=== PATIENT | female | born 1965 | race Caucasian/White ===

== ENCOUNTER 2016-07-28 21:21 | Emergency (ER) | payer OTHER ==
[~2016-07-28] VITALS: Ht 157.5 cm; Wt 95.3 kg
[~2016-07-28 21:21] MED LIST: CEPH-507 PO; CPR500T PO; HYDR-3583 PO; HYDR-757 PO; HYDR-91 PO; NITR-33 PO; NITR100C3 PO
--- OUTSIDE RECORDS SUMMARY | 2016-07-28 21:26 | XMS REPORT | Continuity of Care Document ---
Author Author [facility] Organization [facility] Address Unknown Phone Unavailable Allergies Active Description Code Type Severity Reaction Onset Reported/Identified Relationship to Patient Clinical Status Yes iodine [id number] Drug Allergy Moderate SWELLING, RASH 08/22/2015 Yes morphine [id number] Drug Allergy Mild N/V 08/22/2015 Medications Problems Date Dx Coded Attending Type Code Diagnosis Diagnosed By 08/22/2015 SHIREEN ESTES APRN Ot S61.512A LACERATION WITHOUT FOREIGN BODY OF LEFT 08/22/2015 SHIREEN ESTES APRN Ot S66.822A LACERATION OF MUSC/FASC/TEND AT WRS/ HND 08/22/2015 SHIREEN ESTES APRN Ot W25.XXXA CONTACT WITH [place], INITIAL ENCOUN 08/22/2015 SHIREEN ESTES APRN Ot Y92.[address] [facility] [place] [facility] ( PRIVATE 08/22/2015 SHIREEN ESTES APRN Ot Y99.8 OTHER EXTERNAL CAUSE STATUS 08/22/2015 SHIREEN ESTES APRN Ot Z23 ENCOUNTER FOR IMMUNIZATION 08/24/2015 SHIREEN ESTES APRN Ot S61.512A 08/24/2015 SHIREEN ESTES APRN Ot S66.822A 08/24/2015 SHIREEN ESTES APRN Ot W25.XXXA 08/24/2015 SHIREEN ESTES APRN Ot Y92.009 08/24/2015 SHIREEN ESTES APRN Ot Y99.8 08/24/2015 SHIREEN ESTES APRN Ot Z23 09/17/2015 SHIREEN ESTES APRN Ot S61.512A LACERATION WITHOUT FOREIGN BODY OF LEFT 09/17/2015 SHIREEN ESTES APRN Ot S66.822A LACERATION OF MUSC/FASC/TEND AT WRS/ HND 09/17/2015 SHRIEEN ESTES APRN Ot W25.XXXA CONTACT WITH [place], INITIAL ENCOUN 09/17/2015 SHIREEN ESTES APRN Ot Y92.[address] IN [facility] NON-INSTITUT ( PRIVATE 09/17/2015 SHIREEN ESTES APRN Ot Y99.8 OTHER EXTERNAL CAUSE STATUS 09/17/2015 SHIREEN ESTES APRN Ot Z23 ENCOUNTER FOR IMMUNIZATION 09/22/2015 GEORGINA PINEDA Ot K57.90 DVRTCLOS OF INTEST, 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[place], W/O PERF 09/22/2015 GEORGINA PINEDA Ot Z90.710 ACQUIRED ABSENCE OF BOTH CERVIX AND UTER 09/23/2015 Ot 592.0 CALCULUS OF KIDNEY 09/23/2015 Ot 729.5 PAIN IN LIMB 09/23/2015 Ot 729.81 SWELLING OF LIMB 09/23/2015 VANBECELAERE, PHILL M RESEARCH SOFTWARE ENGINEER Ot 729.5 PAIN IN LIMB 09/23/2015 VANBECELAERE, PHILL M RESEARCH SOFTWARE ENGINEER Ot 729.5 PAIN IN LIMB 09/23/2015 VANBECELAERE, PHILL M RESEARCH SOFTWARE ENGINEER Ot 729.81 SWELLING OF LIMB 09/23/2015 SHIREEN ESTES APRN Ot S61.512A LACERATION WITHOUT FOREIGN BODY OF LEFT 09/23/2015 SHIREEN ESTES APRN Ot S66.822A LACERATION OF MUSC/FASC/TEND AT WRS/ HND 09/23/2015 SHIREEN ESTES APRN Ot W25.XXXA CONTACT WITH SH[place], INITIAL ENCOUN 09/23/2015 SHIREEN ESTES APRN Ot Y92.[address] [facility] NON-INSTITUT ( PRIVATE 09/23/2015 SHIREEN ESTES APRN Ot Y99.8 OTHER EXTERNAL CAUSE STATUS 09/23/2015 SHIREEN ESTES APRN Ot Z23 ENCOUNTER FOR IMMUNIZATION 09/23/2015 GEORGINA PINEDA Ot K57.90 DVRTCLOS OF INTEST, PART UNSP, W/O PERF 09/23/2015 GEORGINA PINEDA Ot Z90.710 ACQUIRED ABSENCE OF BOTH CERVIX AND UTER 09/24/2015 ADELINA GALEAS MD Ot Z01.818 ENCOUNTER FOR OTHER PREPROCEDURAL EXAMIN 09/25/2015 ADELINA GALEAS MD Ot Z01.818 ENCOUNTER FOR OTHER PREPROCEDURAL EXAMIN 09/28/2015 ADELINA GALEAS MD Ot 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 PERFORATION OR AB 09/28/2015 ADELINA GALEAS MD Ot K63.5 POLYP OF COLON 09/28/2015 ADELINA GALEAS MD, Ot K64.1 SECOND DEGREE HEMORRHOIDS 09/28/2015 ADELINA GALEAS MD Ot Z12.11 ENCOUNTER FOR SCREENING FOR MALIGNANT NE 09/29/2015 ADELINA GALEAS MD Ot 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 PERFORATION OR AB 09/29/2015 ADELINA GALEAS MD Ot K63.5 POLYP OF COLON 09/29/2015 ADELINA GALEAS MD Ot K64.1 SECOND DEGREE HEMORRHOIDS 09/29/2015 ADELINA GALEAS MD Ot Z12.11 ENCOUNTER FOR SCREENING FOR MALIGNANT NE 09/30/2015 SHIREEN ESTES VACUUM CONDITIONER OPERATOR Ot S61.512A LACERATION WITHOUT FOREIGN BODY OF LEFT 09/30/2015 SHIREEN ESTSE VACUUM CONDITIONER OPERATOR Ot S66.822A LACERATION OF MUSC/FASC/TEND AT WRS/ HND 09/30/2015 SHIREEN ESTES VACUUM CONDITIONER OPERATOR Ot W25.XXXA CONTACT WITH [place], INITIAL ENCOUN 09/30/2015 SHIREEN ESTES VACUUM CONDITIONER OPERATOR Ot Y92.[address] IN [facility] NON-INSTITUT ( PRIVATE 09/30/2015 SHIREEN ESTES APRN Ot Y99.8 OTHER EXTERNAL CAUSE STATUS 09/30/2015 SHIREEN ESTES VACUUM CONDITIONER OPERATOR Ot Z23 ENCOUNTER FOR IMMUNIZATION 10/07/2015 ADELINA GALEAS MD Ot 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 PERFORATION OR AB 10/07/2015 ADELINA GALEAS MD Ot K63.5 POLYP OF COLON 10/07/2015 ADELINA GALEAS MD Ot K64.1 SECOND DEGREE HEMORRHOIDS 10/07/2015 ADELINA GALEAS MD Ot Z12.11 ENCOUNTER FOR SCREENING FOR MALIGNANT NE 10/15/2015 GEORGINA PINEDA Ot K57.90 DVRTCLOS OF INTEST, PART UNSP, W/O PERF 10/15/2015 GEORGINA PINEDA Ot Z90.710 ACQUIRED ABSENCE OF BOTH CERVIX AND UTER 10/15/2015 PHILL ANNE [facility] Ot R19.09 OTHER INTRA-ABDOMINAL AND PELVIC SWELLIN 11/12/2015 ADELINA GALEAS MD Ot 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 PERFORATION OR AB 11/12/2015 ADELINA GALEAS MD Ot K63.5 POLYP OF COLON 11/12/2015 ADELINA GALEAS MD Ot K64.1 SECOND DEGREE HEMORRHOIDS 11/12/2015 ADELINA GALEAS MD Ot Z12.11 ENCOUNTER FOR SCREENING FOR MALIGNANT NE 04/28/2016 Ot 592.0 CALCULUS OF KIDNEY 04/28/2016 Ot 729.5 PAIN IN LIMB 04/28/2016 Ot 729.81 SWELLING OF LIMB 04/28/2016 VANBECELAERE, PHILL M RESEARCH SOFTWARE ENGINEER Ot 729.5 PAIN IN LIMB 04/28/2016 VANBECELAERE, PHILL M RESEARCH SOFTWARE ENGINEER Ot 729.5 PAIN IN LIMB 04/28/2016 VANBECELAERE, PHILL M RESEARCH SOFTWARE ENGINEER Ot 729.81 SWELLING OF LIMB 04/28/2016 GEORGINA PINEDA Ot K57.90 DVRTCLOS OF INTEST, PART UNSP, W/O PERF 04/28/2016 GEORGINA PINEDA Ot Z90.710 ACQUIRED ABSENCE OF BOTH CERVIX AND UTER 04/28/2016 ADELINA GALEAS MD Ot 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 PERFORATION OR AB 04/28/2016 ADELINA GALEAS MD Ot K63.5 POLYP OF COLON 04/28/2016 ADELINA GALEAS MD Ot K64.1 SECOND DEGREE HEMORRHOIDS 04/28/2016 ADELINA GALEAS MD Ot Z12.11 ENCOUNTER FOR SCREENING FOR MALIGNANT NE 04/28/2016 VANBECELAERE, PHILL M RESEARCH SOFTWARE ENGINEER Ot R19.09 OTHER INTRA-ABDOMINAL AND PELVIC SWELLIN 05/13/2016 Ot 592.0 CALCULUS OF KIDNEY 05/13/2016 Ot 729.5 PAIN IN LIMB 05/13/2016 Ot 729.81 SWELLING OF LIMB 05/13/2016 VANBECELAERE, PHILL M RESEARCH SOFTWARE ENGINEER Ot 729.5 PAIN IN LIMB 05/13/2016 VANBECELAERE, PHILL M RESEARCH SOFTWARE ENGINEER Ot 729.5 PAIN IN LIMB 05/13/2016 VANBECELAERE, PHILL M RESEARCH SOFTWARE ENGINEER Ot 729.81 SWELLING OF LIMB 05/13/2016 GEORGINA PINEDA Ot K57.90 DVRTCLOS OF INTEST, PART UNSP, W/O PERF 05/13/2016 GEORGINA PINEDA Ot Z90.710 ACQUIRED ABSENCE OF BOTH CERVIX AND UTER 05/13/2016 ADELINA GALEAS MD Ot 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 PERFORATION OR AB 05/13/2016 ADELINA GALEAS MD Ot K63.5 POLYP OF COLON 05/13/2016 ADELINA GALEAS MD Ot K64.1 SECOND DEGREE HEMORRHOIDS 05/13/2016 ADELINA GALEAS MD Ot Z12.11 ENCOUNTER FOR SCREENING FOR MALIGNANT NE 05/13/2016 PHILL ANNE Ot R19.09 OTHER INTRA-ABDOMINAL AND PELVIC SWELLIN Procedures Results Encounters ACCT No. Visit Date/Time Discharge Status Pt. Type Provider Facility Loc./Unit Complaint [id number] 09/24/2015 07:28:00 2015 09:41:00 DIS Outpatient ADELINA GALEAS MD [facility] PREOP SCREENING; ABDOMINAL PAIN [id number] 08/22/2015 16:45:00 2015 17:52:00 DIS Emergency SHIREEN ESTES APRN [facility] ER L ARM LAC [id number] 10/16/2013 12:51:00 2013 23:59:59 CLS Outpatient PHILL ANNE [facility] RAD RT FOOT PAIN AND SWELLING [id number] 10/07/2013 11:27:00 2013 23:59:59 CLS Outpatient PHILL ANNE [facility] RAD RT FOOT PAIN [id number] 07/28/2016 21:22:00 ACT Emergency RAMON DUNNE DO [facility] ER ABD PAIN [id number] 09/25/2015 10:39:00 ACT Outpatient ADELINA GALEAS MD [facility] SDC SCREENING; ABDOMINAL PAIN [id number] 09/24/2015 15:34:00 ACT Outpatient PHILL ANNE [facility] RAD LT ADNEXAL MASS [id number] 09/19/2015 11:41:00 ACT Outpatient CASH IBRAHIM, GEORGINA Hinson [facility] RAD L FLANK PAIN [id number] 03/08/2012 14:54:00 Document Registration [id number] 11/11/2011 16:27:00 Document Registration
[2016-07-28] MEDS ORDERED: LACTATED RINGERS 1,000 ML IV ONE (22:51)
[2016-07-28 22:58] LABS: BASOPHILS % (AUTO) 0 % (0-10); EOSINOPHILS # (AUTO) 0.1 10^3/uL (0.0-0.3); EOSINOPHILS % (AUTO) 1 % (0-10); LYMPHOCYTES # (AUTO) 0.8 X 10^3 (1.0-4.0); LYMPHOCYTES % (AUTO) 8 % (12-44); MEAN CORPUSCULAR HEMOGLOBIN 29 PG (25-34); MEAN CORPUSCULAR HGB CONC 35 G/DL (32-36); MEAN CORPUSCULAR VOLUME 84 FL (80-99); MEAN PLATELET VOLUME 10.5 FL (7.4-10.4); MONOCYTES # (AUTO) 0.7 X 10^3 (0.0-1.0); MONOCYTES % (AUTO) 7 % (0-12); NEUTROPHILS % (AUTO) 85 % (42-75); PLATELET COUNT 248 10^3/uL (130-400); RED BLOOD COUNT 5.23 10^6/uL (4.35-5.85); RED CELL DISTRIBUTION WIDTH 12.9 % (10.0-14.5); WHITE BLOOD COUNT 10.6 10^3/uL (4.3-11.0)
[2016-07-28] MEDS ORDERED: ONDANSETRON 4 MG/2 ML (SDV) Z0FRAN IVP ONE (23:00)
[2016-07-28 23:12] LABS: ALANINE AMINOTRANSFERASE 23 U/L (0-55); ALBUMIN 3.6 G/DL (3.2-4.5); AMYLASE 48 U/L (25-125); ANION GAP 10 MMOL/L (5-14); ASPARTATE AMINO TRANSFERASE 16 U/L (5-34); BILIRUBIN,TOTAL 0.6 MG/DL (0.1-1.0); BLOOD UREA NITROGEN 7 MG/DL (7-18); BUN/CREATININE RATIO 9; CALCIUM 8.5 MG/DL (8.5-10.1); CARBON DIOXIDE 21 MMOL/L (21-32); CHLORIDE 106 MMOL/L (98-107); CREATININE SERUM 0.75 MG/DL (0.60-1.30); GFR ESTIMATED > 60; GLUCOSE 112 MG/DL (70-105); LIPASE 48 U/L (8-78); POTASSIUM 3.7 MMOL/L (3.6-5.0); SODIUM 137 MMOL/L (135-145); TOTAL PROTEIN 6.9 G/DL (6.4-8.2)
[2016-07-28] MEDS ORDERED: fentaNYL INJECTION 100 MCG/2 ML AMP IVP STA (23:15)
[2016-07-28 23:59] LABS: BILIRUBIN,URINE NEGATIVE (NEGATIVE); KETONES,URINE NEGATIVE (NEGATIVE); LEUKOCYTE ESTERASE ,URINE 1+ (NEGATIVE); NITRITE,URINE NEGATIVE (NEGATIVE); PH,URINE 7 (5-9); PROTEIN,URINE NEGATIVE (NEGATIVE); UROBILINOGEN,URINE NORMAL (NORMAL)
[2016-07-29 00:13] LABS: WBC,URINE 0-2 /HPF
[2016-07-29] MEDS ORDERED: RX-HYOSCYAMINE 0.125 MG SL (LEVSIN) PPK#6 SL STA (00:28)
[2016-07-29] MEDS ORDERED: fentaNYL INJECTION 100 MCG/2 ML AMP IVP STA (00:28)
[2016-07-29] MEDS ORDERED: RX-TRAMADOL 50 MG (ULTRAM) TAB PPK#4 PO STA (00:28)
[2016-07-29] MEDS ORDERED: RX-ONDANSETRON 4 MG ODT (ZOFRAN) PPK #4 PO STA (00:28)
[2016-07-29] MEDS ORDERED: TRAM-42 PO (00:31)
[2016-07-29] MEDS ORDERED: HYOS0.1283 SL (00:31)
[2016-07-29] MEDS ORDERED: ONDA4TAB8 PO (00:31)
--- NOTE | 2016-07-29 00:31 | ED Abdominal Pain ---
General Chief Complaint: Abdominal/GI Problems Stated Complaint: ABD PAIN Nursing Triage Note: PT C/O ABDOMINAL PAIN AND VOMITING STARTING THIS MORNING. Sepsis Screen: No Definite Risk Source of Information: Patient History of Present Illness Time Seen By Provider: 22:48 Initial Comments PT ARRIVES VIA POV FORM HOME C/O EPIGASTRIC PAIN SINCE THIS AM--PAIN IS CONSTANT, BUT WAXES AND WANES AND IS SHARP AT TIMES PAIN RADIATES THROUGH TO BACK HAS HAD NAUSEA AND VOMITED X 1-NO HEMATEMESIS OR COFFEE-GROUND EMESIS HAD DIARRHEA X 1--SMALL AMOUNT. NO BLACK/BLOODY/TARRY STOOLS HAD TEMP OF 99 NO URINARY SYMPTOMS PAIN IS WORSE WITH MOVEMENTS OR EATING / DRINKING--STATES IT FEELS THE SAME WHEN SHE STILL HAD HER GALLBLADDER ( HAS BEEN REMOVED) NO KNOWN SICK CONTACTS. PCP: DR. ZHENG Allergies and Home Medications Allergies Coded Allergies: iodine (Unverified Allergy, Intermediate, SWELLING, RASH, 08/22/15) morphine (Unverified Adverse Reaction, Mild, N/V, 08/22/15) Home Medications Hyoscyamine Sulfate 0.125 Mg Tab.subl #15 1-2 TAB SL Q4H Prescribed by: RAMON DUNNE on 07/29/1630 Nitrofurantoin Macrocrystals 100 Mg Capsule 7Days 1 EACH PO BID (Reported) Ondansetron 4 Mg Tab.rapdis #10 4 MG PO Q4H Prescribed by: RAMON DUNNE on 07/29/1630 Pantoprazole Sodium 40 Mg Tablet.dr #15 40 MG PO DAILY Prescribed by: RAMON DUNNE on 07/29/1631 Tramadol HCl 50 Mg Tablet #20 50 MG PO Q4H Prescribed by: RAMON DUNNE on 07/29/1630 Review of Systems Constitutional: see HPI fever EENTM: No Symptoms Reported Respiratory: No Symptoms Reported Cardiovascular: No Symptoms Reported Gastrointestinal: See HPI Abdominal Pain Diarrhea Nausea Poor Appetite Vomiting Genitourinary: No Symptoms Reported Musculoskeletal: see HPI back pain Skin: no symptoms reported Psychiatric/Neurological: No Symptoms Reported Endocrine: No Symptoms Reported Hematologic/Lymphatic: No Symptoms Reported Past Fhjkdby-Ehmljn-Kixdov Hx Patient Social History Alcohol Use: Rarely Uses Recreational Drug Use: No Smoking Status: Former Smoker (QUIT 1998) Type Used: Cigarettes Recent Foreign Travel: No Contact w/Someone Who Travel: No Recent Infectious Disease Expo: No Recent Hopitalizations: No Immunizations Up To Date Tetanus Booster (TDap): More than 5yrs Date of Influenza Vaccine: Feb 19, 2015 Seasonal Allergies Seasonal Allergies: No Surgeries HX Surgeries: Yes (ESWL; HYST--OVARIES INTACT. ) Surgeries: Appendectomy, Gallbladder, Hysterectomy, Renal Respiratory Hx Respiratory Disorders: Yes (HX ASTHMA-NO PROBLEMS IN 20 YRS) Respiratory Disorders: Asthma Cardiovascular Hx Cardiac Disorders: No Neurological Hx Neurological Disorders: Yes Neurological Disorders: Headaches /Migraines Reproductive System Hx Reproductive Disorders: No Sexually Transmitted Disease: No LAB HEAD History: Hysterectomy Genitourinary Hx Genitourinary Disorders: Yes (KIDNEY STONES-S/P LITHOTRIPSY; ATROPHIC LEFT KIDNEY. ) Genitourinary Disorders: Kidney Stones Gastrointestinal Hx Gastrointestinal Disorders: Yes (S/P SAMARA) Gastrointestinal Disorders: Gall Bladder Disease Musculoskeletal Hx Musculoskeletal Disorders: No Endocrine Hx Endocrine Disorders: No HEENT HX ENT Disorders: No Cancer Hx Cancer: No Psychosocial Hx Psychiatric Problems: No Integumentary HX Skin/Integumentary Disorder: No Blood Transfusions Hx Blood Disorders: No Physical Exam Vital Signs VS - Last 72 Hours, by Label 07/28/16 07/29/16 22:29 00:59 Temp 99.0 Pulse 89 89 Resp 18 18 B/P 122/83 Pulse Ox 95 99 O2 Delivery Room Air Capillary Refill : Less Than 3 Seconds General Appearance: WD/WN no apparent distress HEENT: PERRL/EOMI Neck: normal inspection Respiratory: normal breath sounds no respiratory distress no accessory muscle use Cardiovascular: regular rate, rhythm no murmur Gastrointestinal: normal bowel sounds soft no organomegaly no pulsatile mass tenderness (MODERATE EPIGASTRIC TENDERNESS) Extremities: normal inspection Back: CVA tenderness (R) (MILD) CVA tenderness (L) (MODERATE) Neurologic/Psychiatric: tetryl screen operator II-XII nml as tested no motor/sensory deficits alert normal mood/affect oriented x 3 Skin: normal color warm/dryNo rash Laceration Repair : Suture Size: 4-0 Progress/Results/Core Measures Results/Orders Lab Results Laboratory Tests Test 07/28/16 22:44 07/28/16 23:50 Range/Units Alanine Aminotransferase (ALT/SGPT) 23 0-55 U/L Albumin 3.6 3.2-4.5 G/DL Alkaline Phosphatase 85 40-136 U/L Amylase Level 48 25-125 U/L Anion Gap 10 5-14 MMOL/L Aspartate Amino Transf (AST/SGOT) 16 5-34 U/L BUN/Creatinine Ratio 9 Basophils # (Auto) 0.0 0.0-0.1 10^3/uL Basophils (%) (Auto) 0 0-10 % Blood Urea Nitrogen 7 7-18 MG/DL Calcium Level 8.5 8.5-10.1 MG/DL Carbon Dioxide Level 21 21-32 MMOL/L Chloride Level 106 98-107 MMOL/L Creatinine 0.75 0.60-1.30 MG/DL Eosinophils # (Auto) 0.1 0.0-0.3 10^3/uL Eosinophils (%) (Auto) 1 0-10 % Estimat Glomerular Filtration Rate > 60 Glucose Level 112 H 70-105 MG/DL Hematocrit 44 35-52 % Hemoglobin 15.3 11.5-16.0 G/DL Lipase 48 8-78 U/L Lymphocytes # (Auto) 0.8 L 1.0-4.0 X 10^3 Lymphocytes (%) (Auto) 8 L 12-44 % Mean Corpuscular Hemoglobin 29 25-34 PG Mean Corpuscular Hemoglobin Concent 35 32-36 G/DL Mean Corpuscular Volume 84 80-99 FL Mean Platelet Volume 10.5 H 7.4-10.4 FL Monocytes # (Auto) 0.7 0.0-1.0 X 10^3 Monocytes (%) (Auto) 7 0-12 % Neutrophils # (Auto) 9.0 H 1.8-7.8 X 10^3 Neutrophils (%) (Auto) 85 H 42-75 % Platelet Count 248 130-400 10^3/uL Potassium Level 3.7 3.6-5.0 MMOL/L Red Blood Count 5.23 4.35-5.85 10^6/uL Red Cell Distribution Width 12.9 10.0-14.5 % Sodium Level 137 135-145 MMOL/L Total Bilirubin 0.6 0.1-1.0 MG/DL Total Protein 6.9 6.4-8.2 G/DL White Blood Count 10.6 4.3-11.0 10^3/uL Urine Bacteria TRACE /HPF Urine Bilirubin NEGATIVE NEGATIVE Urine Casts NONE /LPF Urine Clarity CLEAR Urine Color YELLOW Urine Crystals NONE /LPF Urine Culture Indicated NO Urine Glucose (UA) NEGATIVE NEGATIVE Urine Ketones NEGATIVE NEGATIVE Urine Leukocyte Esterase 1+ H NEGATIVE Urine Mucus NEGATIVE /LPF Urine Nitrite NEGATIVE NEGATIVE Urine Protein NEGATIVE NEGATIVE Urine RBC NONE /HPF Urine RBC (Auto) NEGATIVE NEGATIVE Urine Specific [place] 1.005 L 1.016-1.022 Urine Squamous Epithelial Cells 5-10 /HPF Urine Urobilinogen NORMAL NORMAL MG/DL Urine WBC 0-2 /HPF Urine pH 7 5-9 My Orders Orders-RAMON DUNNE DO Saline Lock/Iv-Start (07/28/16 22:51) Amylase (07/28/16 22:51) Cbc With Automated Diff (07/28/16 22:51) Comprehensive Metabolic Panel (07/28/16 22:51) Lipase (07/28/16 22:51) Ua Culture If Indicated (07/28/16 22:51) Saline Lock/Iv-Start (07/28/16 22:51) Lactated Ringers (Lr 1000 Ml Iv Solution (07/28/16 22:51) Ondansetron Injection (Zofran Injectio (07/28/16 23:00) Ct Abdomen/Pelvis Wo (07/28/16 23:15) Acute Abd Series (07/28/16 23:15) Fentanyl Injection (Sublimaze Injection (07/28/16 23:15) Fentanyl Injection (Sublimaze Injection (07/29/16 00:28) Rx-Hyoscyamine Tab (Rx-Levsin Sl) (07/29/16 00:28) Rx-Ondansetron Po (Rx-Zofran Po) (07/29/16 00:28) Rx-Tramadol Hcl (Rx-Ultram) (07/29/16 00:28) Pantoprazole Tablet (Protonix Tablet) (07/29/16 00:45) Medications Given in ED Current Medications Medications Dose Ordered Sig/Le Route Start Time Stop Time Status Last Admin Dose Admin Lactated Ringer's 1,000 ml @ 0 mls/hr Q0M ONCE IV 07/28/16 22:51 07/28/16 22:53 DC 07/28/16 22:59 1,000 MLS/HR Ondansetron HCl 4 mg ONCE ONCE IVP 07/28/16 23:00 07/28/16 23:01 DC 07/28/16 22:59 4 MG Pantoprazole Sodium 40 mg ONCE ONCE PO 07/29/16 00:45 07/29/16 00:46 DC 07/29/16 00:47 40 MG Vital Signs/I&O Vital Sign - Last 12Hours 07/28/16 07/29/16 22:29 00:59 Temp 99.0 Pulse 89 89 Resp 18 18 B/P 122/83 Pulse Ox 95 99 O2 Delivery Room Air Blood Pressure Mean: 96 Progress Note : Progress Note PAIN AND NAUSEA EASED AT DISMISSAL Diagnostic Imaging Comments ACUTE ABDOMEN XRAYS--NO ACUTE PROCESS, PENDING RADIOLOGIST REVIEW CT ABDOMEN/PELVIS--NO ACUTE PROCESS, FATTY LIVER, ATROPHIC LEFT KIDNEY, BILATERAL NON-OBSTRUCTING INTRARENAL STONES--PER [facility] VIA FAX @ 0034 Reviewed: Reviewed by Me Departure Impression Impression: Primary Impression: Epigastric abdominal pain Disposition: HOME, SELF-CARE Condition: Stable Departure-Patient Inst. Referrals: DANNY ZHENG MD (PCP/Family) Primary Care Physician Patient Instructions: Acute Abdomen (Belly Pain), Adult (DC) Add. Discharge Instructions: CLEAR LIQUIDS--WATER, BROTH, JELLO, GATORADE TOMORROW IF YOU ARE BETTER, ADD BRATS DIET TO CLEAR LIQUIDS--BANANAS, RICE, APPLESAUCE, TOAST, SALTINES FOLLOW UP WITH YOUR DR TOMORROW OR MONDAY IF NO BETTER RETURN TO ER IF WORSE All discharge instructions reviewed with patient and/or family. Voiced understanding. Scripts Pantoprazole Sodium (Protonix)40 Mg Tablet.dr40 Mg PO DAILY #15 TAB Prov:RAMON DUNNE DO 07/29/16 Ondansetron (Zofran Odt)4 Mg Tab.rapdis4 Mg PO Q4H Nausea/Vomiting #10 TAB Prov:UZAIRRAMON K DO 07/29/16 Tramadol HCl (Ultram)50 Mg Ozzzrh27 Mg PO Q4H #20 TAB Prov:UZAIRRAMON K DO 07/29/16 Hyoscyamine Sulfate (Levsin-Sl)0.125 Mg Tab.subl1-2 Tab SL Q4H Abdominal Pain # 15 TAB Prov:UZAIRRAMON K DO 07/29/16 UZAIRRAMON K DO Jul 29, 2016 00:31
[2016-07-29] MEDS ORDERED: PANT40TA2 PO (00:32)
[2016-07-29] MEDS ORDERED: PANTOPRAZOLE 40 MG (PROTONIX) TAB PO ONE (00:45)
[2016-07-29 00:59] VITALS: BP 110/78
--- NOTE | 2016-07-29 07:23 | Diagnostic Imaging Report ---
INDICATION: Abdominal pain. PA chest, supine, and upright abdominal images were obtained. Bowel gas pattern is normal. There are no pathologic masses seen. There is questionable small calculus over the inferior pole of the left kidney. IMPRESSION: Questionable left nephrolithiasis. The gallbladder appears to be surgically absent. Dictated by: Dictated on workstation # [id number]
--- NOTE | 2016-07-29 07:36 | Diagnostic Imaging Report ---
PROCEDURE: CT abdomen and pelvis without contrast. TECHNIQUE: Multiple contiguous axial images were obtained through the abdomen and pelvis without the use of intravenous contrast. INDICATION: Epigastric pain. Lung bases are clear. Liver appears normal. The gallbladder is surgically absent. Pancreas is normal. Spleen is not enlarged. Adrenal glands are normal. There is a 1 mm calculus in the ventral upper pole calyx of the right kidney. 4 mm calculus in the inferior pole of left kidney and a 1 mm calculus in an upper pole calyx of left kidney. There is cortical scarring of left kidney consistent with old pyelonephritis. There is no hydronephrosis. Ureters are clear. Small bowel is not dilated. Colon is unremarkable. Urinary bladder appears normal. IMPRESSION: Bilateral nephrolithiasis with scarring in left kidney consistent with old pyelonephritis. No acute abnormality seen. I agree with preliminary interpretation. Dictated by: Dictated on workstation # [id number]
[2016-08-29] MEDS ORDERED: PANT40TA2 PO (11:55)
== END 2016-07-29 00:59 | disposition home or self-care (01) ==
LOC: EDUNIT# 21:21 → ER 21:22
DX: R10.13 Epigastric pain (principal); R11.2 Nausea with vomiting, unspecified; N20.0 Calculus of kidney; Z87.891 Personal history of nicotine dependence; Z90.49 Acquired absence of other specified parts of digestive tract
CPT/HCPCS: 36415; 74022; 74176; 80053; 81000; 82150; 83690; 85025; 96361; 96374; 96375; 96376

== ENCOUNTER 2016-08-25 05:51 | Outpatient (CLI) | payer OTHER ==
[~2016-08-25] VITALS: Ht 157.5 cm; Wt 95.3 kg
[~2016-08-25 05:51] MED LIST changes: +HYOS0.1283 SL; +ONDA4TAB8 PO; +PANT40TA2 PO; +TRAM-42 PO
[2016-08-25] MEDS ORDERED: LACT1CAP74 PO (13:58)
== END 2016-08-25 14:03 ==
LOC: PREOP 05:51
PROVIDERS: ATTEND Surgery
DX: Z01.818 Encounter for other preprocedural examination (principal); R10.13 Epigastric pain; R19.5 Other fecal abnormalities

== ENCOUNTER 2016-08-29 09:54 | Day surgery (SDC) | payer OTHER ==
[~2016-08-29] VITALS: Ht 157.5 cm; Wt 95.3 kg
[~2016-08-29 09:54] MED LIST changes: +LACT1CAP74 PO
[2016-08-29] MEDS ORDERED: NS IV 500 ML 500 ML IV PRN (09:58)
[2016-08-29] MEDS ORDERED: NS IV 500 ML 500 ML ONE (09:59)
[2016-08-29] MEDS ORDERED: NALOXONE 0.4 MG/ML 1 ML (NARCAN) VIAL IVP PRN (10:00)
[2016-08-29] MEDS ORDERED: HURRICAINE EXT TUBE (BENZOCAINE) XX PRN (10:00)
[2016-08-29] MEDS ORDERED: FLUMAZENIL (ROMAZICON) 0.1 MG/ML 5 ML VIAL INJ PRN (10:00)
--- NOTE | 2016-08-29 10:50 | Conscious Sedation/ASA ---
Conscious Sedation Pre-Proced ASA Class: 2 Airway Mallampati Classification: (chipewwa appropriate class) I. II. III, IV Lungs Heart ASA score ASA 1: a normal healthy patient ASA 2: a patient with a mild systemic disease (mid diabetes, controlled hypertension, obesity ASA 3: a patient with a severe systemic disease that limits activity (angina , COPD, prior Myocardial infarction) ASA 4: a patient with an incapacitating disease that is a constant threat to life (CHF, renal failure) ASA 5: a moribund patient not expected to survive 24 hrs. (ruptured aneurysm) ASA 6: a declared brain patient whose organs are being harvested. For emergent operations, add the letter E after the classification Grade 2 Sedation Plan: Discussed options with patient/fam Note The patient is an appropriate candidate to undergo the planned procedure, sedation, and anesthesia. The patient immediately re-assessed prior to indication. OVI GALINDO MD Aug 29, 2016 10:50 am
[2016-08-29] MEDS: fentaNYL INJECTION 100 MCG/2 ML AMP IVP PRN ×4 (11:03→11:30)
[2016-08-29] MEDS: MIDAZOLAM 2 MG/2 ML (VERSED) VIAL IVP PRN ×4 (11:05→11:32)
[2016-08-29] MEDS ORDERED: fentaNYL INJECTION 100 MCG/2 ML AMP ONE ×2 (11:06→11:07)
[2016-08-29] MEDS ORDERED: MIDAZOLAM 2 MG/2 ML (VERSED) VIAL ONE ×4 (11:06)
[2016-08-29] MEDS ORDERED: HURRICAINE EXT TUBE (BENZOCAINE) ONE (11:07)
[2016-08-29 11:10] VITALS: BP 115/82
[2016-08-29 11:50] VITALS: BP 113/84
[2016-08-29] MEDS ORDERED: PANT40TA2 PO (11:55)
--- NOTE | 2016-08-29 11:55 | Endoscopy Procedure Report ---
Endoscopy Report Date: Aug 29, 2016 Preoperative Diagnosis: epigastric pain. Heme-positive stools. Family history of colon cance Study Performed: Upper Endoscopy, Colonoscopy Procedure Instrument: Endoscope Endo Procedure/Findings Findings Procedure/Findings grade 3 esophagitis. 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 Sigmoid diverticulosis 1.: Diverticulosis Recommendations: Recommendations: 1.: Colonscopy in 5 years Copy Copies To 1: DANNY ZHENG MD, XAVIER M MD Aug 29, 2016 11:54 am
--- NOTE | 2016-08-29 11:56 | Discharge Inst-Simple/Standard ---
Discharge Inst-Standard Discharge Medications New, Converted or Re-Newed RX: RX on Chart Patient Instructions/Follow Up Plan of Care/Instructions/FU: follow-up with her primary. Repeat colonoscopy in 5 years Activity as Tolerated: Yes Discharge Diet: No Restrictions OVI GALINDO MD Aug 29, 2016 11:56 am
[2016-08-29 12:20] VITALS: BP 123/77
[2016-08-29 12:55] VITALS: BP 123/77
--- NOTE | 2016-08-30 08:49 | PROCEDURE REPORT ---
PROCEDURE PHYSICIAN: OVI GALINDO DATE OF PROCEDURE: 08/29/2016 PROCEDURE: 1. Upper GI endoscopy and biopsy. 2. Colonoscopy. SURGEON: Dr. Galindo. INDICATION FOR THE PROCEDURE: This lady came in for an upper endoscopy to evaluate ongoing epigastric pain and colonoscopy on the basis of heme-positive stools. In addition, she was also found to have an adenomatous polyp in the sigmoid colon in September 2015 and reports a family history of colon cancer in her maternal uncle. Informed consent was obtained after reviewing the procedures in detail. DESCRIPTION OF PROCEDURE: UPPER GI ENDOSCOPY/ANTRAL BIOPSY: She was placed in left lateral decubitus position and her vital signs were monitored. Conscious sedation was achieved using Versed and fentanyl. The flexible gastroscope was introduced into the esophagus, past the stomach, into the proximal duodenum. FINDINGS: ESOPHAGUS: Grade III esophagitis with linear ulcers at the distal end. There was no stricture. STOMACH: An incidental, 1 mm AV malformation was found at the distal stomach. An antral biopsy was obtained for Helicobacter status. DUODENUM: Normal. She tolerated the procedure well and was turned around in preparation for colonoscopy. IMPRESSION: 1. Epigastric pain and heme-positive stools. 2. Grade 3 esophagitis. 3. Helicobacter status pending. COLONOSCOPY: Digital rectal examination was unremarkable. The colonoscope was introduced into the rectum and advanced all the way up to the cecum. The scope was then withdrawn slowly and the mucosa examined in a systematic fashion. FINDINGS: 1. Quite diffuse sigmoid diverticulosis. 2. No recurrent polyps were found. She tolerated the procedures well and was taken back to the nursing area in a stable condition. IMPRESSION: 1. Heme positive stools. 2. Previous history of polyps, currently negative. 3. Recommend repeating in 5 years. Job ID: [id number] Dictated Date: 08/29/2016 11:53:30 Lighting Fixtures Decorator Date: 08/30/2016 08:45:19 / prema THORNTON
== END 2016-08-29 12:55 | disposition home or self-care (01) ==
LOC: ENDO 09:54
PROVIDERS: ATTEND Surgery
DX: K21.9 Gastro-esophageal reflux disease without esophagitis (principal); K57.90 Diverticulosis of intestine, part unspecified, without perforation or abscess without bleeding; K22.10 Ulcer of esophagus without bleeding; Z86.010 Personal history of colon polyps; Z80.0 Family history of malignant neoplasm of digestive organs
CPT/HCPCS: 88305

== ENCOUNTER → 2018-04-27 | Outpatient (CLI) | payer BC, OTHER ==
[~2018-04-27] MED LIST changes: +HYDR-4226 PO; -HYDR-757 PO
--- NOTE | 2018-05-01 19:48 | Diagnostic Imaging Report ---
EXAM: Digital mammogram, bilateral screening with 3D tomosynthesis. The current study was also evaluated with a Computer Aided Detection (CAD) system. COMPARISON: This study was compared to the prior exam of 07/22/2013. At this time, there are no complaints. FINDINGS: There are scattered fibroglandular densities in both breasts which could obscure a lesion. Overall, there does not appear to have been any significant change when compared to the prior exam. No primary or secondary sign of malignancy is noted. IMPRESSION: 1. There is no evidence for malignancy. 2. The patient should have her annual bilateral screening mammogram on schedule in April of 2019. ACR Category 1. ACR BI-RADS Category 1: Negative. Result letter will be mailed to the patient. Note: At least 10% of breast cancer is not imaged by mammography. Dictated on workstation # [id number]
== END ==
LOC: RAD 11:23
PROVIDERS: ATTEND Family Medicine
DX: Z12.31 Encounter for screening mammogram for malignant neoplasm of breast (principal)
CPT/HCPCS: 77067

== ENCOUNTER 2018-09-27 14:01 | Outpatient (CLI) | payer BC | END 2018-09-27 15:15 | disposition home or self-care (01) | LOC: RAD 14:01 | PROVIDERS: ATTEND Nurse Practitioner Family | DX: G47.33 Obstructive sleep apnea (adult) (pediatric) (principal); G47.10 Hypersomnia, unspecified ==

== ENCOUNTER → 2018-10-05 | Outpatient (CLI) | payer BC ==
--- NOTE | 2018-10-05 11:54 | Diagnostic Imaging Report ---
PROCEDURE: MR imaging of the brain without contrast. TECHNIQUE: Multiplanar, multisequence MR imaging of the brain was performed without contrast. INDICATION: Migraine headaches, increasing in severity as well as dizziness. COMPARISON: No prior studies are available for comparison. FINDINGS: Ventricles and sulci are within normal limits. No sulcal effacement or midline shift is detected. Corpus callosum is unremarkable. The sella and parasellar structures are unremarkable. No acute intra-axial or extra-axial hemorrhage is detected. There is no diffusion restriction. The normal expected flow-voids within the carotid siphons are seen. IMPRESSION: Unremarkable noncontrast MRI of the brain. No acute feature is detected. Dictated by: Dictated on workstation # [id number]
== END ==
LOC: RAD 08:29
PROVIDERS: ATTEND Nurse Practitioner Family
DX: G43.909 Migraine, unspecified, not intractable, without status migrainosus (principal); R42 Dizziness and giddiness
CPT/HCPCS: 70551

== ENCOUNTER → 2019-05-10 | Outpatient (CLI) | payer BC ==
--- NOTE | 2019-05-10 11:16 | Diagnostic Imaging Report ---
INDICATION: Dysphagia. FINDINGS: The study was performed in conjunction with speech pathology. Video fluoroscopy was performed during swallowing of barium at multiple consistencies. Patient ingested thin barium with a spoon and straw. Patient also ingested puree and mechanical soft consistency as well as ground meat and cracker consistency. A total of 1 minute and 4 seconds of fluoroscopic time was utilized. The oral phase is unremarkable. There is normal epiglottic tilt and laryngeal elevation. No early spillover was detected. There was mild vallecular residue noted with the mechanical soft, ground meat and cracker consistency. This did clear after repeated swallows. No laryngeal penetration or aspiration was observed. IMPRESSION: Essentially unremarkable modified barium swallow with the exception of mild vallecular residue. No penetration or aspiration was observed. Dictated by: Dictated on workstation # [id number]
== END ==
LOC: RAD 10:20
PROVIDERS: ATTEND Nurse Practitioner Family
DX: R13.12 Dysphagia, oropharyngeal phase (principal)
CPT/HCPCS: 74230

== ENCOUNTER 2020-06-26 11:32 | Emergency (ER) | payer BC ==
[~2020-06-26] VITALS: Ht 160 cm; Wt 95.3 kg
[2020-06-26 12:08] LABS: BILIRUBIN,URINE NEGATIVE (NEGATIVE); CLARITY,URINE CLEAR; COLOR,URINE YELLOW; GLUCOSE, URINE (UA) NEGATIVE (NEGATIVE); KETONES,URINE NEGATIVE (NEGATIVE); LEUKOCYTE ESTERASE ,URINE NEGATIVE (NEGATIVE); NITRITE,URINE NEGATIVE (NEGATIVE); PH,URINE 6.5 (5-9); PROTEIN,URINE NEGATIVE (NEGATIVE)
[2020-06-26 12:22] LABS: BACTERIA,URINE TRACE /HPF; WBC,URINE 0-2 /HPF
[2020-06-26 12:26] LABS: BASOPHILS % (AUTO) 0 % (0-10); EOSINOPHILS % (AUTO) 0 % (0-10); HEMATOCRIT 47 % (35-52); HEMOGLOBIN 15.6 g/dL (11.5-16.0); LYMPHOCYTES # (AUTO) 1.6 10^3/uL (1.0-4.0); LYMPHOCYTES % (AUTO) 34 % (12-44); MEAN CORPUSCULAR HEMOGLOBIN 28 pg (25-34); MEAN CORPUSCULAR HGB CONC 33 g/dL (32-36); MEAN CORPUSCULAR VOLUME 85 fL (80-99); MEAN PLATELET VOLUME 10.3 fL (9.0-12.2); MONOCYTES # (AUTO) 0.4 10^3/uL (0.0-1.0); MONOCYTES % (AUTO) 8 % (0-12); NEUTROPHILS # (AUTO) 2.7 10^3/uL (1.8-7.8); NEUTROPHILS % (AUTO) 57 % (42-75); PLATELET COUNT 170 10^3/uL (130-400); WHITE BLOOD COUNT 4.8 10^3/uL (4.3-11.0)
[2020-06-26 12:35] LABS: ALBUMIN 3.8 GM/DL (3.2-4.5); CHLORIDE 102 MMOL/L (98-107); POTASSIUM 3.7 MMOL/L (3.6-5.0); SODIUM 136 MMOL/L (135-145)
[2020-06-26 12:37] LABS: CALCIUM 8.4 MG/DL (8.5-10.1)
[2020-06-26 12:38] LABS: GLUCOSE 97 MG/DL (70-105); TOTAL PROTEIN 7.4 GM/DL (6.4-8.2)
[2020-06-26 12:39] LABS: CARBON DIOXIDE 26 MMOL/L (21-32)
[2020-06-26 12:40] LABS: BILIRUBIN,TOTAL 0.4 MG/DL (0.1-1.0)
[2020-06-26 12:41] LABS: ALKALINE PHOSPHATASE 72 U/L (40-136); CREATININE SERUM 0.84 MG/DL (0.60-1.30); GFR ESTIMATED > 60; PROTHROMBIN TIME PATIENT 13.5 SEC (12.2-14.7)
[2020-06-26 12:42] LABS: BUN/CREATININE RATIO 10
[2020-06-26 12:44] LABS: ALANINE AMINOTRANSFERASE 42 U/L (0-55)
[2020-06-26] MEDS ORDERED: ONDANSETRON 4 MG/2 ML (SDV) Z0FRAN IVP ONE (12:45)
--- NOTE | 2020-06-26 15:01 | Diagnostic Imaging Report ---
PROCEDURE: CT urinary tract, rule out kidney stone. TECHNIQUE: Multiple contiguous axial images were obtained through the abdomen and pelvis without the use of intravenous contrast. Auto Exposure Controls were utilized during the CT exam to meet ALARA standards for radiation dose reduction. INDICATION: Left flank pain. Hematuria. COMPARISON: 07/28/2016 FINDINGS: Included portions of the lung bases show patchy consolidative infiltrates in the base of the right middle and right lower lobes consistent with pneumonia. CT ABDOMEN: Appendix cannot be adequately identified, but appears to be surgically absent. Small bowel loops are nondistended. Multiple bilateral nonobstructive renal calculi are identified. No ureteral calculi are seen on either side. Additionally, there is no hydronephrosis or other evidence of obstruction. Note is made of prominent lobulated appearance of the left kidney. Findings may be seen with prior infection or infarction. Persistent lobulation is also a consideration, but felt to be much less likely. Liver is diffusely hypodense consistent with background hepatic steatosis. Gallbladder is surgically absent. Adrenal glands, spleen, and pancreas have an unremarkable noncontrast CT appearance. There is no loculated fluid collection, free fluid or free air within the abdomen. No abnormal mesenteric or retroperitoneal adenopathy is seen. Osseous structures show no acute abnormalities. CT PELVIS: Urinary bladder is unopacified. No calculi are seen within the urinary bladder. There is no loculated fluid collection, free fluid or free air within the pelvis. No abnormal adenopathy is seen. Osseous structures show no acute abnormalities. IMPRESSION: 1. Bilateral nonobstructive renal calculi, left more numerous than right. 2. No ureteral calculi, hydronephrosis, or other evidence of obstruction. 3. Significant asymmetric lobulated appearance of the left kidney. Again, appearance can be seen with prior infection or infarction. Persistent lobulation is felt to be much less likely. 4. Findings consistent with pneumonia in the right lung base. Follow-up with serial chest radiographs is recommended. 5. Hepatic steatosis. Dictated by: Dictated on workstation # [id number]
--- NOTE | 2020-06-26 15:07 | NUR ---
IN TALKING TOT THE PT AT THIS TIME.
[2020-06-26] MEDS ORDERED: AZIT250T12 PO (15:14)
--- NOTE | 2020-06-26 15:14 | ED General ---
General Chief Complaint: - Urinary Stated Complaint: CT FOR KIDNEYS, KUB Nursing Triage Note: PT SENT FROM DR VERA'S OFFICE FOR POSSIBLE KIDNEY INFECTION/STONE. PT STATES FOR A WEEK SHE HAS BEEN HAVING BACK PAIN, CHILLS, AND FEVER. STATES SHE DID HAVE A NEGATIVE COVID TEST. Nursing Sepsis Screen: No Definite Risk Source of Information: Patient Exam Limitations: No Limitations History of Present Illness Date Seen by Provider: Jun 26, 2020 Time Seen by Provider: 12:01 Initial Comments This 55-year-old woman presents to the emergency room as directed by Dr. Garcia's office to be evaluated for potential ureteral stone and possible pyelonephritis. She has been ill for about a week with chills and lower back pain. She has a significant history of ureteral stones and kidney stones. She has a compromised left kidney from a prior infection or injury. She reports her family tested positive for COVID-19 2 days ago but she tested negative. She does however comment during assessment that she has lost taste. Allergies and Home Medications Allergies Coded Allergies: iodine (Unverified Allergy, Intermediate, SWELLING, RASH, 08/25/16) morphine (Unverified Adverse Reaction, Mild, N/V, 08/25/16) Home Medications Azithromycin 250 Mg Tablet, 250 MG PO UD TAKE 2 TABLETS ON DAY ONE THEN TAKE 1 TABLET DAILY FOR FOUR MORE DAYS Prescribed by: DANIELLA RAMSAY on 06/26/20 1514 Lactobacillus Combination No.4 1 Each Capsule, PO DAILY, (Reported) Nitrofurantoin Macrocrystals 100 Mg Capsule, 1 EACH PO BID, (Reported) Pantoprazole Sodium 40 Mg Tablet.dr, 40 MG PO DAILY Prescribed by: OVI GALINDO on 08/29/16 1155 Patient Home Medication List Home Medication List Reviewed: Yes Review of Systems Review of Systems Constitutional: see HPI, chills EENTM: see HPI Respiratory: no symptoms reported Cardiovascular: no symptoms reported Gastrointestinal: no symptoms reported Genitourinary: see HPI : No Musculoskeletal: see HPI Skin: no symptoms reported Psychiatric/Neurological: No Symptoms Reported Hematologic/Lymphatic: No Symptoms Reported Immunological/Allergic: no symptoms reported Past Pptwjtn-Lkymcq-Eaakjs Hx Past Med/Social Hx: Reviewed Nursing Past Med/Soc Hx Patient Social History Alcohol Use: Denies Use Smoking Status: Former Smoker Type Used: Cigarettes Former Smoker, Quit: Aug 26, 2011 Recent Infectious Disease Expo: No Recent Hopitalizations: No Immunizations Up To Date Tetanus Booster (TDap): More than 5yrs Date of Influenza Vaccine: Feb 19, 2015 Seasonal Allergies Seasonal Allergies: No Past Medical History Surgeries: Yes (ESWL; HYST--OVARIES INTACT. 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 Sexually Transmitted Disease: No HIV/AIDS: No Kidney Stones Gastrointestinal: Yes (EPIGASTRIC PAIN, NAUSEA, BLOOD IN STOOLS) Gall Bladder Disease Musculoskeletal: No Endocrine: No Loss of Vision: Bilateral Hearing Impairment: Denies Cancer: No Psychosocial: No Integumentary: Yes Eczema Blood Disorders: No Adverse Reaction/Blood Tranf: Yes (HIVES-20YRS AGO) Physical Exam Vital Signs Vital Signs - First Documented 06/26/20 11:42 Temp 36.8 Pulse 91 Resp 20 B/P (MAP) 129/84 (99) Pulse Ox 95 O2 Delivery Room Air Capillary Refill : Less Than 3 Seconds Height, Weight, BMI Height: 5'2.00" Weight: 210lbs. 0.0oz. [id number]; 37.00 BMI Method:Stated General Appearance: No Apparent Distress, WD/WN, Obese HEENT: PERRL/EOMI, Normal ENT Inspection Neck: Normal Inspection Respiratory: Lungs Clear, Normal Breath Sounds, No Accessory Muscle Use Cardiovascular: Regular Rate, Rhythm, No Edema, No Murmur, Normal Peripheral Pulses Gastrointestinal: Normal Bowel Sounds, Non Tender, Soft Back: CVA Tenderness (L), CVA Tenderness (R), Other Extremity: Normal Inspection, Non Tender, No Pedal Edema Neurologic/Psychiatric: Alert, Oriented x3, No Motor/Sensory Deficits, Normal Mood/Affect, reject opener and filler II-XII Norm as Tested Skin: Normal Color, Warm/Dry Focused Exam Lactate Level 06/26/20 12:10: Lactic Acid Level 0.86 Lactic Acid Level Procedures/Interventions Suture Size: 4-0 Progress/Results/Core Measures Suspected Sepsis Recent Fever Within 48 Hours: No Infection Criteria Present: None New/Unexplained Altered Menta: No Sepsis Screen: No Definite Risk SIRS Temperature: Pulse: 91 Respiratory Rate: 20 Laboratory Tests 06/26/20 12:10: White Blood Count 4.8 Blood Pressure 129 /84 Mean: 99 06/26/20 12:10: Lactic Acid Level 0.86 Laboratory Tests 06/26/20 12:10: Creatinine 0.84, INR Comment 1.0, Platelet Count 170, Total Bilirubin 0.4 Results/Orders Lab Results Laboratory Tests Test 06/26/20 11:53 06/26/20 12:10 06/26/20 12:54 Range/Units Urine Color YELLOW Urine Clarity CLEAR Urine pH 6.5 5-9 Urine Specific Addison 1.010 L 1.016-1.022 Urine Protein NEGATIVE NEGATIVE Urine Glucose (UA) NEGATIVE NEGATIVE Urine Ketones NEGATIVE NEGATIVE Urine Nitrite NEGATIVE NEGATIVE Urine Bilirubin NEGATIVE NEGATIVE Urine Urobilinogen 0.2 < = 1.0 MG/DL Urine Leukocyte Esterase NEGATIVE NEGATIVE Urine RBC (Auto) NEGATIVE NEGATIVE Urine RBC NONE /HPF Urine WBC 0-2 /HPF Urine Squamous Epithelial Cells 5-10 /HPF Urine Crystals NONE /LPF Urine Bacteria TRACE /HPF Urine Casts NONE /LPF Urine Mucus NEGATIVE /LPF Urine Culture Indicated NO White Blood Count 4.8 4.3-11.0 10^3/uL Red Blood Count 5.56 H 3.80-5.11 10^6/uL Hemoglobin 15.6 11.5-16.0 g/dL Hematocrit 47 35-52 % Mean Corpuscular Volume 85 80-99 fL Mean Corpuscular Hemoglobin 28 25-34 pg Mean Corpuscular Hemoglobin Concent 33 32-36 g/dL Red Cell Distribution Width 12.4 10.0-14.5 % Platelet Count 170 130-400 10^3/uL Mean Platelet Volume 10.3 9.0-12.2 fL Immature Granulocyte % (Auto) 0 % Neutrophils (%) (Auto) 57 42-75 % Lymphocytes (%) (Auto) 34 12-44 % Monocytes (%) (Auto) 8 0-12 % Eosinophils (%) (Auto) 0 0-10 % Basophils (%) (Auto) 0 0-10 % Neutrophils # (Auto) 2.7 1.8-7.8 10^3/uL Lymphocytes # (Auto) 1.6 1.0-4.0 10^3/uL Monocytes # (Auto) 0.4 0.0-1.0 10^3/uL Eosinophils # (Auto) 0.0 0.0-0.3 10^3/uL Basophils # (Auto) 0.0 0.0-0.1 10^3/uL Immature Granulocyte # (Auto) 0.0 0.0-0.1 10^3/uL Prothrombin Time 13.5 12.2-14.7 SEC INR Comment 1.0 0.8-1.4 Activated Partial Thromboplast Time 29 24-35 SEC Sodium Level 136 135-145 MMOL/L Potassium Level 3.7 3.6-5.0 MMOL/L Chloride Level 102 98-107 MMOL/L Carbon Dioxide Level 26 21-32 MMOL/L Anion Gap 8 5-14 MMOL/L Blood Urea Nitrogen 8 7-18 MG/DL Creatinine 0.84 0.60-1.30 MG/DL Estimat Glomerular Filtration Rate > 60 BUN/Creatinine Ratio 10 Glucose Level 97 70-105 MG/DL Lactic Acid Level 0.86 0.50-2.00 MMOL/L Calcium Level 8.4 L 8.5-10.1 MG/DL Corrected Calcium 8.6 8.5-10.1 MG/DL Total Bilirubin 0.4 0.1-1.0 MG/DL Aspartate Amino Transf (AST/SGOT) 32 5-34 U/L Alanine Aminotransferase (ALT/SGPT) 42 0-55 U/L Alkaline Phosphatase 72 40-136 U/L Total Protein 7.4 6.4-8.2 GM/DL Albumin 3.8 3.2-4.5 GM/DL Coronavirus 2019 (APRIL) Positive H Negative My Orders Orders - DANIELLA HAIRSTON MD Cbc With Automated Diff (06/26/20 12:01) Comprehensive Metabolic Panel (06/26/20 12:01) Blood Culture (06/26/20 12:01) Urinalysis (06/26/20 12:01) Urine Culture (06/26/20 12:01) Protime With Inr (06/26/20 12:01) Partial Thromboplastin Time (06/26/20 12:01) Ed Iv/Invasive Line Start (06/26/20 12:01) Ed Iv/Invasive Line Start (06/26/20 12:01) Vital Signs Adult Sepsis Patie Q15M (06/26/20 12:01) Remove Rings In Anticipation O (06/26/20 12:01) Lactic Acid Analyzer (06/26/20 12:01) Ondansetron Injection (Zofran Injectio (06/26/20 12:45) Covid 19 Inhouse Test (06/26/20 12:36) Ct Abd/Pelvis Wo(Kidney Stone) (06/26/20 13:59) Medications Given in ED Current Medications Medications Dose Ordered Sig/Le Route Start Time Stop Time Status Last Admin Dose Admin Ondansetron HCl 8 mg ONCE ONCE IVP 06/26/20 12:45 06/26/20 12:46 DC 06/26/20 12:51 8 MG Vital Signs/I&O 06/26/20 06/26/20 11:42 15:23 Temp 36.8 36.8 Pulse 91 91 Resp 20 20 B/P (MAP) 129/84 (99) 129/84 (99) Pulse Ox 95 95 O2 Delivery Room Air Capillary Refill : Less Than 3 Seconds Blood Pressure Mean: 99 Progress Note : Progress Note Work-up was positive for COVID-19. Work-up was otherwise unremarkable. I discussed obtaining CT scan at length with the patient. We discussed risks and benefits. Risks included radiation exposure. I also discussed the case with Dr. Garcia who stated CT is reasonable given patient's considerable urologic history and history of ureteral stones. After discussion of risks and benefits patient requested to proceed with CT scan. No ureteral stones were identified. Diagnostic Imaging Diagonstic Imaging: CT Plain Films/CT/US/NM/MRI: abdomen, pelvis Comments CT abdomen and pelvis viewed by me and report reviewed. See report below: NAME: STANLEY BOSWELL [facility] REC#: [id number] PT STATUS: DEP ER : 1965 PHYSICIAN: DANIELLA HAIRSTON MD ADMIT DATE: 06/26/20/ER Signed Date of Exam:06/26/20 CT ABD/PELVIS WO(KIDNEY STONE) PROCEDURE: CT urinary tract, rule out kidney stone. TECHNIQUE: Multiple contiguous axial images were obtained through the abdomen and pelvis without the use of intravenous contrast. Auto Exposure Controls were utilized during the CT exam to meet ALARA standards for radiation dose reduction. INDICATION: Left flank pain. Hematuria. COMPARISON: 07/28/2016 FINDINGS: Included portions of the lung bases show patchy consolidative infiltrates in the base of the right middle and right lower lobes consistent with pneumonia. CT ABDOMEN: Appendix cannot be adequately identified, but appears to be surgically absent. Small bowel loops are nondistended. Multiple bilateral nonobstructive renal calculi are identified. No ureteral calculi are seen on either side. Additionally, there is no hydronephrosis or other evidence of obstruction. Note is made of prominent lobulated appearance of the left kidney. Findings may be seen with prior infection or infarction. Persistent lobulation is also a consideration, but felt to be much less likely. Liver is diffusely hypodense consistent with background hepatic steatosis. Gallbladder is surgically absent. Adrenal glands, spleen, and pancreas have an unremarkable noncontrast CT appearance. There is no loculated fluid collection, free fluid or free air within the abdomen. No abnormal mesenteric or retroperitoneal adenopathy is seen. Osseous structures show no acute abnormalities. CT PELVIS: Urinary bladder is unopacified. No calculi are seen within the urinary bladder. There is no loculated fluid collection, free fluid or free air within the pelvis. No abnormal adenopathy is seen. Osseous structures show no acute abnormalities. IMPRESSION: 1. Bilateral nonobstructive renal calculi, left more numerous than right. 2. No ureteral calculi, hydronephrosis, or other evidence of obstruction. 3. Significant asymmetric lobulated appearance of the left kidney. Again, appearance can be seen with prior infection or infarction. Persistent lobulation is felt to be much less likely. 4. Findings consistent with pneumonia in the right lung base. Follow-up with serial chest radiographs is recommended. 5. Hepatic steatosis. Dictated by: Dictated on workstation # [id number] Dict: 06/26/20 1454 Trans: 06/26/20 165 [facility] [id number] Interpreted by: RICHARD SENA MD Electronically signed by: RICHARD SENA MD 06/26/20 1652 Departure Impression Primary Impression: COVID-19 Additional Impressions: Right lower lobe pneumonia Qualified Codes: J18.9 - Pneumonia, unspecified organism Lower back pain Qualified Codes: M54.5 - Low back pain Bilateral kidney stones Disposition: 01 HOME, SELF-CARE Condition: Improved Departure-Patient Inst. Decision time for Depature: 15:11 Referrals: DANNY ZHENG MD (PCP/Family) Primary Care Physician Patient Instructions: Coronavirus Disease 2019 (COVID-19) Overview Add. Discharge Instructions: Remain in quarantine until released by the health department. You may take Tylenol and/or ibuprofen for pain and fever. Complete your antibiotic as prescribed. Follow-up with your primary care provider after the recovery time to determine if a repeat x-ray is appropriate to ensure signs of pneumonia have cleared. Stay well-hydrated with plenty of clear liquids. Some experts advocate use of supplements such as multivitamin, vitamin C, vitamin D, elderberry and zinc to speed recovery from COVID-19. Do not exceed package instructions for dosing. Call with questions or concerns. Return to the emergency room if you have worsening condition. All discharge instructions reviewed with patient and/or family. Voiced understanding. Scripts Azithromycin (Azithromycin) 250 Mg Tablet 250 MG PO UD, #6 TAB TAKE 2 TABLETS ON DAY ONE THEN TAKE 1 TABLET DAILY FOR FOUR MORE DAYS Prov: DANIELLA HAIRSTON MD 06/26/20 Copy Copies To 1: DANNY ZHENG MD Copies To 2: RICHIE GARCIA MD, JOSHUA T MD Jun 26, 2020 15:14
[2020-06-26 15:23] VITALS: BP 129/84
== END 2020-06-26 15:23 | disposition home or self-care (01) ==
LOC: EDUNIT# 11:32 → ER 11:34
DX: U07.1 COVID-19 (principal); J18.9 Pneumonia, unspecified organism; N20.0 Calculus of kidney; E66.9 Obesity, unspecified; Z68.37 Body mass index [BMI] 37.0-37.9, adult; Z87.891 Personal history of nicotine dependence; Z88.5 Allergy status to narcotic agent; Z91.041 Radiographic dye allergy status
CPT/HCPCS: 36415; 74176; 80053; 81000; 83605; 85025; 85610; 85730; 87040; 87088; 87635

== ENCOUNTER → 2020-07-08 | Outpatient (CLI) | payer BC ==
[~2020-07-08] MED LIST changes: +AZIT250T12 PO
--- NOTE | 2020-07-08 13:40 | Diagnostic Imaging Report ---
INDICATION: Cough, COVID-19. COMPARISON: 07/28/2016. FINDINGS: Frontal and lateral views of the chest demonstrate normal heart size and pulmonary vascularity. The lungs are clear. There are no signs of infiltrate, pleural effusions or pneumothoraces. The visualized osseous structures show no acute abnormalities. IMPRESSION: 1. No acute process. No signs of infiltrates, effusions or pneumothoraces. Dictated by: Dictated on workstation # [id number]
== END ==
LOC: RAD 12:55
PROVIDERS: ATTEND Nurse Practitioner Family
DX: U07.1 COVID-19 (principal)
CPT/HCPCS: 71046

== ENCOUNTER → 2021-05-26 | Outpatient (CLI) | payer BC ==
[2021-05-26 15:07] LABS: HEMATOCRIT 48 % (35-52); HEMOGLOBIN 16.1 g/dL (11.5-16.0); MEAN CORPUSCULAR HEMOGLOBIN 29 pg (25-34); MEAN CORPUSCULAR HGB CONC 34 g/dL (32-36); MEAN CORPUSCULAR VOLUME 85 fL (80-99); MEAN PLATELET VOLUME 10.2 fL (9.0-12.2); PLATELET COUNT 287 10^3/uL (130-400); WHITE BLOOD COUNT 10.3 10^3/uL (4.3-11.0)
--- NOTE | 2021-05-26 15:29 | Diagnostic Imaging Report ---
Indication: Shortness of breath PA and lateral chest Heart size and pulmonary vascularity are normal. Lungs are clear. There are no effusions or pneumothoraces. IMPRESSION: No acute abnormalities in the chest Dictated by: Dictated on workstation # [id number]
[2021-05-26 15:30] LABS: ALBUMIN 3.8 GM/DL (3.2-4.5); BILIRUBIN,TOTAL 0.4 MG/DL (0.1-1.0); CALCIUM 9.2 MG/DL (8.5-10.1); CREATININE SERUM 0.81 MG/DL (0.60-1.30); POTASSIUM 4.3 MMOL/L (3.6-5.0); TOTAL PROTEIN 7.8 GM/DL (6.4-8.2)
== END ==
LOC: RAD 14:46
PROVIDERS: ATTEND Nurse Practitioner Family
DX: J18.9 Pneumonia, unspecified organism (principal)
CPT/HCPCS: 36415; 71046; 80053; 85027; 85379

== ENCOUNTER → 2022-09-28 | Outpatient (CLI) | payer BC ==
--- NOTE | 2022-09-28 09:13 | Diagnostic Imaging Report ---
INDICATION: Routine screening. COMPARISON: 04/27/2018. TECHNIQUE: 2D and 3D bilateral screening mammography was performed with CAD. FINDINGS: Both breasts are heterogeneously dense, limiting the sensitivity of mammography. Intraparenchymal lymph nodes in the outer left breast appear stable. No spiculated mass or malignant-appearing microcalcifications are identified. The axillae are unremarkable. IMPRESSION: No mammographic features suspicious for malignancy are identified. ACR BI-RADS Category 2: Benign findings. Result letter will be mailed to the patient. Note: At least 10% of breast cancer is not imaged by mammography. Dictated by: Dictated on workstation # [id number]
== END ==
LOC: RAD 07:30
PROVIDERS: ATTEND Nurse Practitioner Family
DX: Z12.31 Encounter for screening mammogram for malignant neoplasm of breast (principal)
CPT/HCPCS: 77063; 77067